=== PATIENT | female | born 1945 | race Caucasian/White ===

== ENCOUNTER 2025-05-01 17:54 | Emergency (ER) | payer OTHER ==
[~2025-05-01] VITALS: Ht 149.9 cm; Wt 68.0 kg
[2025-05-01] MEDS: KETOROLAC 30MG/ML VIAL IM ONE (18:45)
[2025-05-01] MEDS: PROPOFOL 200MG/20ML VIAL IV ONE (20:15)
[2025-05-01] MEDS: KETAMINE HCL 50 MG/ML 10ML IV ONE (20:15)
[2025-05-01 21:14] VITALS: O2SAT 100
[2025-05-01] MEDS: LORAZEPAM 2MG/ML UD SYRINGE IV SCH (21:29)
[2025-05-01] MEDS: MORPHINE SULFATE 4 MG/ML INJ (FOR IV/IM USE) IV ONE (21:29)
[2025-05-01] MEDS ORDERED: IBUP-2030 MT (22:53)
[2025-05-01 23:47] VITALS: BP 174/85; PULSE 74; RESP 19; TEMP 36.6; O2SAT 100
== END 2025-05-02 00:15 | disposition home or self-care (01) ==
LOC: ER 17:54
DX: S52.592A Other fractures of lower end of left radius, initial encounter for closed fracture (principal); S52.691A Other fracture of lower end of right ulna, initial encounter for closed fracture; M19.032 Primary osteoarthritis, left wrist; M19.042 Primary osteoarthritis, left hand; S09.8XXA Other specified injuries of head, initial encounter; W01.0XXA Fall on same level from slipping, tripping and stumbling without subsequent striking against object, initial encounter; Y93.89 Activity, other specified; Y92.89 Other specified places as the place of occurrence of the external cause; Y99.8 Other external cause status
CPT/HCPCS: 25605; 72070; 73090; 73100; 73110; 73130; 70450; 93005; 96372; 96374; 96375; 99285; J1885; J3490; J2060; J2704; J2270; A6449; A4565